=== PATIENT | female | born 1980 | race Two or more races ===

== ENCOUNTER 2018-04-08 17:32 | Emergency (ER) | payer MEDICAID ==
[~2018-04-08] VITALS: Ht 160 cm; Wt 79.8 kg
[2018-04-08 17:54] VITALS: BP 101/74
== END 2018-04-08 22:21 | disposition left against medical advice (07) ==
LOC: ER 17:32
DX: R10.30 Lower abdominal pain, unspecified (principal); Z53.21 Procedure and treatment not carried out due to patient leaving prior to being seen by health care provider
CPT/HCPCS: 76830; 76856